=== PATIENT | female | born 1985 | race African-American/Black ===

== ENCOUNTER 2016-12-30 15:29 | Emergency (ER) | payer OTHER ==
[~2016-12-30] VITALS: Ht 152.4 cm; Wt 113.4 kg
[~2016-12-30 15:29] MED LIST: HYDROCHLOROTHIA25 M1 PO; HYDRODIURIL 2525 MG PO; METFORMIN1000 MG PO; PANTOPRAZOLE SO20 MG PO; REGLAN10 M1 PO; ZOFRAN4 M1 SL
[2016-12-30 15:39] VITALS: BP 160/99
--- NOTE | 2016-12-30 16:21 | ED EAR COMPLAINT ---
History of Present Illness General Chief Complaint: Ear Complaints Stated Complaint: EAR INFECTION [id number] Source: patient, old records Exam Limitations: no limitations Vital Signs & Intake/Output Vital Signs & Intake/Output Vital Signs Date Time Temp Pulse Resp B/P B/P Pulse O2 O2 Flow FiO2 Mean Ox Delivery Rate 12/30 1539 98.4 92 18 160/99 98 Room Air ED Intake and Output 12/31 0000 12/30 1200 Intake Total Output Total Balance Patient 250 lb Weight Weight Reported by Patient Measurement Method Allergies Coded Allergies: latex (Severe, HIVES 07/10/16) bee pollen (Severe, PASSES OUT 07/10/16) Reconcile Medications Amoxicillin/Potassium Clav (Augmentin 875-125 Tablet) 875 MG-125 MG TABLET 1 TAB PO BID OTITIS Hydrochlorothiazide (Hydrodiuril 25 MG Tab) 25 MG TABLET 1 TAB PO DAILY BP ( Reported) Hydrochlorothiazide 25 MG TABLET 1 TAB PO DAILY BLOOD PRESSURE METFORMIN HCL (Metformin) 1,000 MG TABLET 1 TAB PO BID DIABETES (Reported) Metoclopramide HCl (Reglan) 10 MG TABLET 1-2 TAB PO Q6 PRN NAUSEA/VOMITING 30 minutes before meals and bedtime Mometasone Furoate (Nasonex) 50 MCG SPRAY.PUMP 2 SPRAY NASB DAILY RHINITIS Ondansetron (Zofran Odt) 4 MG TAB.RAPDIS 1 TAB SL Q4-6 PRN NAUSEA Pantoprazole Sodium 20 MG ECT 1 TAB PO DAILY AC GI (Reported) Triage Note: PT TO ED FOR EAR INFECTION X 2 MONTHS, SAW PCP WHO PRESCRIBED EAR DROPS AND KEFLEX. PT STATING "THE DROPS GAVE ME A HEADACHE". REPORTING BLACK AND YELLOW DRAINAGE. Triage Nurses Notes Reviewed? yes Onset: Gradual Duration: X 2 MONTHS Timing: recent history Injury Environment: home Severity: mild, moderate Severity Numbers: 5 No Modifying Factors: none Associated Symptoms: DENIES : No Patient currently breastfeeds: No HPI: 31-year-old female history of hypertension diabetes presents to ER complaining of bilateral however left greater than right ear pain for the past 2 months. She is prescribed and glottic drops and Keflex however states her symptoms persist and she has noted intermittent dry black yellowish discharge. She is not thought care since her initial presentation. She is also complaining of sinus pressure and nasal congestion. She denies cough fever or sore throat. No other modifying factors or associated symptoms otherwise. (LIZ PEARCE) Past History Travel History Traveled to [place] past 21 day No Medical History Any Pertinent Medical History? see below for history Neurological: migraine EENT: NONE Cardiovascular: hypertension Respiratory: NONE Gastrointestinal: GERD Hepatic: NONE Renal: NONE Musculoskeletal: NONE Psychiatric: anxiety, depression Endocrine: diabetes Blood Disorders: anemia Cancer(s): NONE CLINICAL ASSOCIATE/Reproductive: PCOS Surgical History Surgical History: non-contributory Psychosocial History What is your primary language Spanish Tobacco Use: Never used ETOH Use: denies use Illicit Drug Use: denies illicit drug use Family History Hx Contributory? No (LZI PEARCE) Review of Systems Review of Systems Constitutional: Reports: see HPI. All Other Systems: Reviewed and Negative Comments Review of systems: See HPI, All other systems negative. Constitutional, no chills no fever, no malaise HEENT: No visual changes no sore throat no congestion, ear pain Cardiovascular: No chest pain , no palpitation Skin: no rashes, no change in skin Respiratory: No dyspnea no cough GI: No nausea no vomiting, no diarrhea, : No dysuria Muscle skeletal: No joint pain, no back pain, no neck pain, Neurologic: No numbness no headache Psych: No stress Heme/endocrine: No bruising no bleeding Immunology: No lymphadenopathy (LIZ PEARCE) Physical Exam Physical Exam General Appearance: well developed/nourished, no apparent distress, alert, awake Ears: Bilateral: canal normal. Comments: Well-developed well-nourished patient in no apparent distress. Head/Face: Atraumatic, no maxillary/frontal sinus tenderness, no facial swelling Eyes: PERRL, EOMI, no conjunctival injection. No nystagmus Ear:External auditory canal and Tympanic membranes clear, no erythema, no FB. Nose: atraumatic.Normal inspection: No bleeding Throat: Moist mucous membranes.Pharynx normal. No pharyngeal erythema/exudate seen. No stridor/drooling or assymetry. No swelling or edema. Neck: Supple, no lymphadenopathy, FROM Back: FROM Cardiovascular: Regular rate and rhythms no murmurs rubs or gallops, Respiratory: Chest nontender.There were no bony deformities, no asymmetry. No respiratory distress. Patient speaking in full complete sentences. Breath sounds clear to auscultation bilaterally: NO W/R/R Extremities: full range of motion Neuro: awake, alert, and oriented to person, place and time. There were no obvious focal neurologic abnormalities. Skin: Warm & dry;No appreciable rash on exposed skin Psych: Mood affect normal, normal memory normal judgment. (LIZ PEARCE) Progress Differential Diagnoses I considered the following diagnoses in my evaluation of the patient: [Otitis media otitis externa mastoiditis ruptured TM Plan of Care: I discussed with the patient at length all of their results. I had an extensive conversation regarding need for close follow up with their primary care physician as well as ear nose and throat this week as well as return precautions. I answered all of their questions, they feel comfortable with the plan and follow-up care. I discussed the medications that they will receive with the patient. I gave them signs and symptoms that could indicate an adverse reaction. I have advised them to limit their activities until they can see how they respond to the medication. Initial ED EKG: none (LIZ PEARCE) Departure Departure Time of Disposition: 1628 Disposition: HOME OR SELF CARE Condition: Stable Clinical Impression Primary Impression: Otitis media Referrals: ARSENIO MORALES APRN (PCP/Family) Additional Instructions: AUGMENTIN DIRECTED. NASONEX DISCUSSED. THESE WERE SENT TO [facility]. FOLLOW UP WITH EAR NOSE AND THROAT DR JACQUES IF SYMPTOMS PERSIST. Departure Forms: Customer Survey General Discharge Information Prescriptions: Current Visit Scripts Amoxicillin/Potassium Clav (Augmentin 875-125 Tablet) 1 TAB PO BID #14 TAB Mometasone Furoate (Nasonex) 2 SPRAY NASB DAILY #1 INHAL (LIZ PEARCE) PA/ADJUNCT PROFESSOR OF VOICE Co-Sign Statement Statement: ED Attending supervision documentation- [] I saw and evaluated the patient. I have also reviewed all the pertinent lab results and diagnostic results. I agree with the findings and the plan of care as documented in the PA's/ADJUNCT PROFESSOR OF VOICE's documentation. [X] I have reviewed the ED Record and agree with the PA's/ADJUNCT PROFESSOR OF VOICE's documentation. [] Additions or exceptions (if any) to the PAs/ADJUNCT PROFESSOR OF VOICE's note and plan are summarized below: [] (DYLAN EARLY,JIN)
[2016-12-30] MEDS ORDERED: AUGMENTIN 875-1 EACH PO (16:31)
[2016-12-30] MEDS ORDERED: NASONEX17 GM NASB (16:31)
== END 2016-12-30 16:48 ==
LOC: ERH 15:29
DX: H66.92 Otitis media, unspecified, left ear (principal)